=== PATIENT | female | born 1930 | race Hispanic/Latino ===

== ENCOUNTER 2018-09-27 18:06 | Inpatient (IN) | payer MEDICARE, OTHER ==
[~2018-09-27] VITALS: Ht 144.8 cm; Wt 69.9 kg
--- OUTSIDE RECORDS SUMMARY | 2018-09-27 18:09 | XMS REPORT ---
Author Author [facility] Address Unknown Phone Unavailable Care Team Providers Care Structures Mechanic Name Role Phone Unavailable Unavailable Payers Payer Name Policy Type Policy Number Effective Date Expiration Date Problems This patient has no known problems. Allergies, Adverse Reactions, Alerts Allergy Name Allergy Type Status Severity Reaction(s) Onset Date Inactive Date Treating Clinician Comments Sulfa (Sulfonamide Antibiotics) DA Active U 2016-10-18 00:00:00 sulfamethoxazole DA Active U 2016-10-18 00:00:00 trimethoprim DA Active U 2016-10-18 00:00:00 Medications This patient has no known medications.
--- NOTE | 2018-09-27 19:55 | Diagnostic Imaging Report ---
EXAM: XR CHEST 2 VIEWS DATE: 09/27/2018 12:00 AM INDICATION: chills COMPARISON: None FINDINGS: Lines and Tubes: None Heart and Mediastinum: Enlarged. Aortic vascular calcifications. Lungs and Pleura: Mild edema. Patchy basilar opacities. Bones and Soft Tissues: No acute findings. IMPRESSION: 1. Mild volume overload with basilar volume loss and/or pneumonia. Signed by: Dr. Parish John MD on 09/27/2018 7:52 PM
--- NOTE | 2018-09-27 21:23 | Diagnostic Imaging Report ---
ADDENDUM #1 Addendum: Indeterminate left adrenal nodule could be better evaluated with outpatient adrenal mass CT or MRI. Signed by: Dr. Parish John MD on 09/27/2018 9:24 PM ORIGINAL REPORT EXAM: CT Abdomen and Pelvis WITH contrast INDICATION: Pain COMPARISON: None. TECHNIQUE: Abdomen and Pelvis was scanned utilizing a multidetector helical scanner after administration of IV contrast. Coronal and sagittal reformations were obtained. IV CONTRAST: 100 mL Isovue-370 COMPLICATIONS: None RADIATION DOSE: Total DLP:732 mGy*cm Estimated effective dose: (DLP x 0.015 x size factor) mSv CTDIvol has been reviewed. It is below the limits set by the Radiation Protocol Committee (RPC). Appropriate CT dose reduction techniques were utilized. FINDINGS: Abdomen: Lung Bases: Basilar atelectasis. Solid Organs: Cholecystectomy clips with prominence of the intrahepatic and extrahepatic biliary system, statistically reservoir phenomenon. Cysts left hepatic lobe. Indeterminate nodule left adrenal gland. Solid organs otherwise unremarkable. Upper GI Tract: No small bowel obstructive changes. Vascularity: Mild aortic vascular calcifications with no aneurysm. Lymph Nodes: No suspicious adenopathy. Other: None. Pelvis: Bladder: Layering contrast. Other: Uterus/adnexa suboptimally evaluated with CT. 16 mm cyst left adnexa. Colon: Diffuse diverticulosis. Wall thickening sigmoid colon. Bones: Degenerative changes. IMPRESSION: 1. Extensive diverticulosis. Wall thickening sigmoid colon could represent sequela of chronic inflammation, with mild acute diverticulitis possible. Correlation with symptoms. 2. Uterus/adnexa suboptimally evaluated. Small cyst right adnexa. Follow-up nonemergent outpatient pelvic ultrasound recommended. 3. Prominence intrahepatic and extra hepatic below system statistically reservoir phenomenon. Clinical/laboratory correlation for biliary obstruction recommended. Signed by: Dr. Parish John MD on 09/27/2018 9:20 PM
[2018-09-27] MEDS ORDERED: ACETAMINOPHEN 325 MG TAB PO PRN (23:15)
[2018-09-27] MEDS ORDERED: LEVOFLOXACIN 500MG/D5W 100ML 100 ML IV ONE (23:15)
[2018-09-27] MEDS ORDERED: ONDANSETRON HCL INJ 2MG/ML 2ML 2 MG/ML VIAL IV PRN (23:15)
[2018-09-27] MEDS ORDERED: METRONIDAZOLE 500MG/NS 100ML 100 ML IV ONE (23:15)
[2018-09-27] MEDS ORDERED: ACETAMINOPHEN 325 MG TAB PO ONE (23:15)
[2018-09-27] MEDS ORDERED: ROPINIROLE HC0.25 MG PO (23:59)
[2018-09-27] MEDS ORDERED: LOSARTAN POTASS25 MG PO (23:59)
[2018-09-27] MEDS ORDERED: OMEPRAZOLE40 MG PO (23:59)
[2018-09-28] VITALS (9 sets, daily range): BP systolic 114–154; BP diastolic 56–67
--- NOTE | 2018-09-28 00:25 | NUR ---
received patient from [facility], [facility]. Swazi speaking. daughter and son at bedside. denies any pain at this time. vss. skin intact. no edema. pulses intact. left ac 20g sl. bed locked and in lowest position, call light within reach. family refused bed alarm. amb w/ standby assist. will continue to monitor the patient.
[2018-09-28] MEDS ORDERED: ASPIRIN81 MG PO (01:16)
[2018-09-28] MEDS ORDERED: SODIUM CHLORIDE 0.9% 250ML 250 ML ONE (02:01)
[2018-09-28] MEDS ORDERED: METRONIDAZOLE 500MG/NS 100ML 100 ML IV SCH (06:00)
[2018-09-28 06:44] LABS: BASOPHILS % 0.4 % (0.0-1.0); EOSINOPHILS % 0.1 % (0.0-6.0); HEMATOCRIT 32.7 % (34.2-44.1); HEMOGLOBIN 10.6 g/dL (12.0-16.0); LYMPHOCYTES # (AUTO) 0.8 (1.0-3.2); LYMPHOCYTES % 11.8 % (18.0-39.1); MEAN CORPUSCULAR HEMOGLOBIN 30.2 pg (28-32); MEAN CORPUSCULAR HGB CONC 32.4 g/dL (31-35); MEAN CORPUSCULAR VOLUME 93.2 fL (81-99); MONOCYTES # (AUTO) 0.6 (0.2-0.8); MONOCYTES % 8.6 % (4.4-11.3); NEUTROPHILS # (AUTO) 5.4 (2.1-6.9); NEUTROPHILS % 78.8 % (38.7-80.0); PLATELET COUNT 182 x10e3/uL (140-360); RED BLOOD COUNT 3.51 x10e6/uL (3.6-5.1); RED CELL DISTRIBUTION WIDTH 12.8 % (11.7-14.4)
[2018-09-28 07:06] LABS: ALANINE AMINOTRANSFERASE 105 IU/L (0-55); ALBUMIN 3.1 g/dL (3.5-5.0); ALKALINE PHOSPHATASE 74 IU/L (40-150); ANION GAP 13.1 mmol/L (8-16); BILIRUBIN,DIRECT 0.4 mg/dL (0.0-0.5); BLOOD UREA NITROGEN 15 mg/dL (7-26); BUN/CREATININE RATIO 19 (6-25); CALCIUM 8.8 mg/dL (8.4-10.2); CARBON DIOXIDE 25 mmol/L (22-29); CHLORIDE 100 mmol/L (98-107); EST GLOMERULAR FILTRATION RATE > 60 ML/MIN (60-); GLUCOSE 104 mg/dL (74-118); POTASSIUM 4.1 mmol/L (3.5-5.1); SODIUM 134 mmol/L (136-145)
--- NOTE | 2018-09-28 07:27 | NUR ---
Received patient. Patient laying down in bed at this time, no signs of distress. Bed in lowest position, wheels locked, side rails up x2, call light in reach. Family at bedside, will continue to monitor.
[2018-09-28] MEDS ORDERED: ZOLPIDEM TARTRATE 5 MG TAB PO PRN (10:00)
[2018-09-28] MEDS ORDERED: DOCUSATE SODIUM LIQD 100 MG/10 ML UDC NG SCH (10:30)
[2018-09-28] MEDS ORDERED: MAGNESIUM HYDROXIDE 30 ML UDC PO NR (10:30)
[2018-09-28] MEDS: ROPINIROLE HCL 0.25 MG TAB PO SCH (10:41)
[2018-09-28] MEDS: PANTOPRAZOLE SOD 40 MG TABEC PO SCH (10:41)
[2018-09-28] MEDS: LOSARTAN POTASSIUM 25 MG TAB PO SCH (10:41)
[2018-09-28] MEDS: METRONIDAZOLE 500MG/NS 100ML 100 ML IV SCH ×2 (10:41→18:17)
--- NOTE | 2018-09-28 11:10 | NUR ---
Patient A/O x3 even respirations unlabored on RA. Last BM Saturday, bowel sounds active. Skin intact, no edema. Left AC 20 gauge SL. Belarusian speaking with family at bedside. Patient is ambulatory with standby assist. Tylenol given for headache this AM. Pain subsided, no other complaints or discomforts at this time. Call light in reach, will continue to monitor.
[2018-09-28 11:16] LABS: BILIRUBIN,URINE NEGATIVE (NEGATIVE); CLARITY,URINE CLEAR (CLEAR); COLOR,URINE YELLOW (YELLOW); KETONES,URINE NEGATIVE (NEGATIVE); LEUKOCYTE ESTERASE ,URINE NEGATIVE (NEGATIVE); NITRITE,URINE NEGATIVE (NEGATIVE); PROTEIN,URINE DIPSTICK NEGATIVE (NEGATIVE); URINE UROBILINOGEN 0.2 mg/dL (0.2 - 1)
[2018-09-28 11:28] LABS: RBC,URINE 0-5 /HPF (0-5)
--- NOTE | 2018-09-28 12:26 | History and Physical ---
CHIEF COMPLAINT: Fever and chills. HISTORY OF PRESENT ILLNESS: The patient is an 88-year-old woman. She reports some fever and chills for about 2 days prior to admission. The day before yesterday, she had some abdominal pain, but it has not returned. She notes some cough. She also notes some difficulty hearing. When she came to the emergency department, she was found to have a fever of 101.5. Chest x-ray shows some infiltrates. CT scan of the abdomen showed some thickening of the colonic wall, possibly related to diverticulitis. PAST SURGICAL HISTORY: Status post cholecystectomy. PAST MEDICAL HISTORY 1. History of peptic ulcer disease, treated about 10 years ago. 2. History of hypertension. 3. History of acid reflux. ALLERGIES: PATIENT IS ALLERGIC TO PENICILLINS. SOCIAL HISTORY: The patient is not a drinker. She is not a smoker. 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 FAMILY HISTORY: The family history is noncontributory. REVIEW OF SYSTEMS: She did have some fevers and chills. She had no headache. She denied any throat swelling. She had no neck pain. She denied any chest pain. She has no coughing or wheezing. She denies any dyspnea. She had some transient abdominal pain about 2 days ago. She has no leg edema. PHYSICAL EXAMINATION VITAL SIGNS: The patient is afebrile. The vital signs are stable. HEENT: Shows no facial swelling or erythema. The oropharynx is normal. LYMPHATIC: Shows no submandibular, cervical, or supraclavicular adenopathy. CARDIAC: Reveals a regular rate and rhythm with a normal S1 and S2. There are no murmurs or rubs. LUNGS: Auscultation of the lungs reveals clear breath sounds bilaterally. There is no wheezing. ABDOMEN: Soft, nontender. There is no rebound or guarding. EXTREMITIES: Shows no leg edema or calf tenderness. There is no cyanosis or clubbing. SKIN: Shows no rashes. NEUROLOGICAL: Shows no focal abnormality. RADIOGRAPHIC DATA: CT scan of the abdomen and pelvis shows diverticulosis and possible thickening of the colonic wall. Chest x-ray shows some possible basal atelectasis. LABORATORY DATA: Sodium is 134 and the BUN and creatinine is normal. The AST is 95 and the ALT is 105. The white blood cell count is 6.8 and the hemoglobin is 10.6. The platelet count is 182. IMPRESSION 1. Community-acquired pneumonia. 2. Diverticulosis. 3. Anemia, unspecified. 4. History of peptic ulcer disease. 5. History of hypertension. PLAN 1. Patient will receive antibiotics for community-acquired pneumonia and diverticulitis. 2. Await culture results. 3. Echocardiogram. 4. Monitor blood counts and liver profile. Job#: [id number] LPA
--- NOTE | 2018-09-28 19:27 | NUR ---
Report received and walking rounds complete. Pt resting in bed and in no apparent distress. Pt family at bedside. Family member to stay overnight. Pt czech speaking only. All safety measures ensured, bed alarm on and pt call perez near. Pt encouraged to use call perez for assistance.
[2018-09-28] MEDS ORDERED: LEVOFLOXACIN 500MG/D5W 100ML 100 ML IV SCH (23:15)
[2018-09-29] VITALS (8 sets, daily range): BP systolic 124–157; BP diastolic 60–79
[2018-09-29] MEDS: LEVOFLOXACIN 500MG/D5W 100ML 100 ML IV SCH (02:07)
[2018-09-29] MEDS: METRONIDAZOLE 500MG/NS 100ML 100 ML IV SCH ×3 (03:31→19:44)
[2018-09-29 05:40] LABS: BASOPHILS % 0.6 % (0.0-1.0); EOSINOPHILS # (AUTO) 0.1 (0.0-0.4); EOSINOPHILS % 1.1 % (0.0-6.0); HEMATOCRIT 33.1 % (34.2-44.1); HEMOGLOBIN 11.1 g/dL (12.0-16.0); LYMPHOCYTES % 20.2 % (18.0-39.1); MEAN CORPUSCULAR HEMOGLOBIN 31.1 pg (28-32); MEAN CORPUSCULAR HGB CONC 33.5 g/dL (31-35); MEAN CORPUSCULAR VOLUME 92.7 fL (81-99); MONOCYTES # (AUTO) 0.7 (0.2-0.8); MONOCYTES % 15.3 % (4.4-11.3); NEUTROPHILS % 62.6 % (38.7-80.0); PLATELET COUNT 172 x10e3/uL (140-360); RED BLOOD COUNT 3.57 x10e6/uL (3.6-5.1); RED CELL DISTRIBUTION WIDTH 13.1 % (11.7-14.4)
[2018-09-29 06:10] LABS: ALANINE AMINOTRANSFERASE 65 IU/L (0-55); ALBUMIN 3.1 g/dL (3.5-5.0); ALKALINE PHOSPHATASE 63 IU/L (40-150); ANION GAP 13.3 mmol/L (8-16); BLOOD UREA NITROGEN 11 mg/dL (7-26); BUN/CREATININE RATIO 14 (6-25); CALCIUM 8.9 mg/dL (8.4-10.2); CARBON DIOXIDE 24 mmol/L (22-29); CHLORIDE 106 mmol/L (98-107); CREATININE, SERUM 0.79 mg/dL (0.57-1.11); EST GLOMERULAR FILTRATION RATE > 60 ML/MIN (60-); GLUCOSE 95 mg/dL (74-118); POTASSIUM 4.3 mmol/L (3.5-5.1); SODIUM 139 mmol/L (136-145)
--- NOTE | 2018-09-29 07:28 | NUR ---
report given to day shift nurse and walking round complete.
[2018-09-29] MEDS ORDERED: MAGNESIUM HYDROXIDE 30 ML UDC PO ONE (08:30)
[2018-09-29] MEDS: PANTOPRAZOLE SOD 40 MG TABEC PO SCH (08:53)
[2018-09-29] MEDS: ROPINIROLE HCL 0.25 MG TAB PO SCH (08:54)
[2018-09-29] MEDS: LOSARTAN POTASSIUM 25 MG TAB PO SCH (08:54)
[2018-09-29] MEDS ORDERED: ASPIRIN 81 MG CHEW TAB PO SCH (09:00)
[2018-09-29] MEDS ORDERED: ROPINIROLE HCL 0.25 MG TAB PO SCH (09:00)
--- NOTE | 2018-09-29 09:41 | Diagnostic Imaging Report ---
EXAMINATION: CHEST 2 VIEWS INDICATION: Pneumonia. COMPARISON: Chest radiograph 09/27/[address] Abdomen/Pelvis 09/27/2018. FINDINGS: Limited lateral radiograph secondary to motion. TUBES and LINES: None. LUNGS: Mild patchy bibasilar opacities, likely atelectasis. There is no evidence of lobar pneumonia or pulmonary edema. PLEURA: No pleural effusion or pneumothorax. HEART AND MEDIASTINUM: The cardiomediastinal silhouette is unchanged and enlarged. Atherosclerotic calcifications of the aortic arch. BONES AND SOFT TISSUES: No acute osseous abnormality. Rotator cuff anchors are visualized in the right proximal humerus. UPPER ABDOMEN: No free air under the diaphragm. IMPRESSION: Mild patchy bibasilar opacities, likely atelectasis. No evidence of lobar pneumonia. Signed by: Dr. Anthony Conrad MD on 09/29/2018 9:38 AM
--- NOTE | 2018-09-29 14:28 | Diagnostic Imaging Report ---
PROCEDURE: X-RAY MODIFIED BARIUM SWALLOW COMPARISON: None. INDICATION: Cough. Radiation Details: Fluoroscopy time: 0.8 minutes Cumulative dose: 1.7 mGy DISCUSSION: Fluoroscopic examination was performed in conjunction with speech pathology during swallowing a variety of thin and thick liquid consistencies. Provided images demonstrate no evidence of penetration or aspiration. Trace vallecular residue is noted. CONCLUSION: Modified barium swallow demonstrating no evidence of penetration or aspiration. Please refer to the speech pathology report for further details. Signed by: Dr. Anthony Conrad MD on 09/29/2018 2:25 PM
--- NOTE | 2018-09-29 14:52 | NUR ---
CASE MANAGEMENT INITIAL ASSESSMENT Customer Service Supervisor to bedside to discuss plan of care with patient/family. CM/SW role and care transitions discussed. Anticipated discharge plan discussed along with duration of care. CM/SW discussed patients right to make decisions in care. CM/SW work hours given. Spoke with pt's daughter Yarelis Bocanegra Patient lives: with son Errol Bocanegra and daughter in law, but has been staying with her daughter Yarelis Bocanegra Admit/Transfer: thru ED Hospital/ER visits since last admit: last hospitalization 3 years ago POA/Emergency contact: Errol Bocanegra [phone] Current/Previous Home Health: previously had home health, does not remember the name. PCP/Follow-up Care: Dr. Liriano Current/Previous DME: walker Medications (referring to index hospitalization or the first time you were in the hospital) a. Were changes made in your medications when you were in the hospital on [date of index hospitalization]? n/a b. Did you understand the changes? n/a c. Were you able to obtain your new medications right away? n/a d. Were you able to take your medications like the doctor wanted you to? n/a e. Did the hospital give you an accurate, easy to understand list of medications when you left? n/a Scale of 1-10 how comfortable does patient feel with disease management in outpatient settin Other Services: none Employment Status: retired Areas of Concerns: pneumonia, diverticulitis Referral Needs: none Education Needs: medical management IMM/FUENTES given and signed (if applicable): IMM explained to pt and her daughter. Portuguese copy provided. Signed copy in chart. Copy to pt. Goal for discharge: Home CM/SW left business card at the bedside with contact information. Name and number was also written on the patients whiteboard. Patient verbalized understanding of discussion. CM will follow-up with ongoing discharge and transition of care needs.
[2018-09-30] MEDS: LEVOFLOXACIN 500MG/D5W 100ML 100 ML IV SCH (02:01)
[2018-09-30] MEDS: METRONIDAZOLE 500MG/NS 100ML 100 ML IV SCH (03:35)
[2018-09-30 04:00] VITALS: BP 132/60
[2018-09-30 06:22] LABS: BASOPHILS % 0.7 % (0.0-1.0); EOSINOPHILS # (AUTO) 0.1 (0.0-0.4); EOSINOPHILS % 1.9 % (0.0-6.0); HEMATOCRIT 32.6 % (34.2-44.1); HEMOGLOBIN 10.6 g/dL (12.0-16.0); LYMPHOCYTES # (AUTO) 1.4 (1.0-3.2); LYMPHOCYTES % 26.3 % (18.0-39.1); MEAN CORPUSCULAR HEMOGLOBIN 30.8 pg (28-32); MEAN CORPUSCULAR HGB CONC 32.5 g/dL (31-35); MEAN CORPUSCULAR VOLUME 94.8 fL (81-99); MONOCYTES # (AUTO) 0.8 (0.2-0.8); MONOCYTES % 15.6 % (4.4-11.3); NEUTROPHILS % 55.3 % (38.7-80.0); PLATELET COUNT 179 x10e3/uL (140-360); RED BLOOD COUNT 3.44 x10e6/uL (3.6-5.1); RED CELL DISTRIBUTION WIDTH 12.9 % (11.7-14.4)
[2018-09-30 06:27] VITALS: BP 157/64
[2018-09-30 06:50] LABS: ANION GAP 13.3 mmol/L (8-16); CALCIUM 8.8 mg/dL (8.4-10.2); POTASSIUM 4.3 mmol/L (3.5-5.1)
[2018-09-30 08:21] VITALS: BP 154/67
--- NOTE | 2018-09-30 08:42 | NUR ---
PT ALERT RESP EVEN AND UNLABORED PT ABLE TO MAKE NEEDS KNOWN, NO C/O PAIN WHEN ASKED, CALL LIGHT IN REACH
--- NOTE | 2018-09-30 08:49 | Discharge Summary ---
DISCHARGE MEDICATIONS 1. Aspirin 81 mg p.o. daily. 2. Losartan 25 mg p.o. daily. 3. Omeprazole 40 mg p.o. daily. 4. Requip 0.5 mg p.o. at bedtime. 5. Levaquin 500 mg p.o. daily for 7 days. DISCHARGE DIAGNOSES 1. Community-acquired pneumonia, present on admission. 2. Diverticulitis. 3. Diverticulosis. 4. Anemia, unspecified. 5. History of peptic ulcer disease. 6. History of hypertension. RADIOGRAPHIC STUDIES 1. Modified barium swallow showed no evidence of aspiration. 2. CT scan of the abdomen and pelvis showed diffuse diverticulosis with some thickening of the sigmoid wall suggestive of chronic inflammation and mild diverticulitis. 3. Chest x-ray shows patchy bibasilar atelectasis versus opacities. HISTORY OF PRESENT ILLNESS: Patient is an 88-year-old woman. She has a history of fever and chills for 2 days prior to admission. She also notes some cough for about a week. Her cough is nonproductive. She had some abdominal pain, as well as some difficulty moving her bowels. HOSPITAL COURSE: The patient came to the emergency department. Her x-ray showed possible bibasilar infiltrates. Her influenza swab was negative. She was started on antibiotics. She had a swallowing evaluation that was negative. She also had an echocardiogram that showed good function of the heart with only some mild calcification of the valves. She improved with the treatment from the antibiotics, and was eager to go home at the time of discharge. Patient also had a CT scan that showed diverticulosis and possible diverticulitis. She did not complain of nausea or vomiting. She did note some constipation and required some Milk of Magnesia. She was able to tolerate p.o. feeding without difficulty. She had no abdominal pain postprandially. She had no nausea or vomiting. DISPOSITION: The patient will be discharged home. She will follow up with Dr. Ezra Omer in 1-2 weeks. LASHANDA RAMIREZ MD Job#: [id number] [place] cc:EZRA OMER MD
--- NOTE | 2018-09-30 14:00 | NUR ---
pt discharge home with prescription ,pt and family member were educated on medication, and follow ups, iv site removed no swelling no redness to site.
== END 2018-09-30 10:13 | disposition home or self-care (01) | DRG 391 ==
LOC: FSED 18:06 → ERHOLD 23:39 → MED/SURG 09-28 00:25
PROVIDERS: ADMIT Internal Medicine Critical Care Medicine; ATTEND Internal Medicine Critical Care Medicine
DX: K57.32 Diverticulitis of large intestine without perforation or abscess without bleeding (principal); J18.9 Pneumonia, unspecified organism; I10 Essential (primary) hypertension; D64.9 Anemia, unspecified; K27.9 Peptic ulcer, site unspecified, unspecified as acute or chronic, without hemorrhage or perforation; Z88.0 Allergy status to penicillin; Z88.2 Allergy status to sulfonamides; K59.00 Constipation, unspecified
CPT/HCPCS: 36415; 71046; 74177; 74230; 80048; 80053; 80076; 81001; 85025; 93005; 93306; 99284; J1956; J7050

== ENCOUNTER 2018-11-03 22:51 | Emergency (ER) | payer MEDICARE, OTHER ==
[~2018-11-03] VITALS: Ht 144.8 cm; Wt 69.9 kg
[~2018-11-03 22:51] MED LIST: ASPIRIN81 MG PO; LOSARTAN POTASS25 MG PO; OMEPRAZOLE40 MG PO; ROPINIROLE HC0.25 MG PO
[2018-11-03] MEDS ORDERED: ACETAMINOPHEN 325 MG TAB PO ONE (23:15)
[2018-11-03] MEDS ORDERED: CLONIDINE HCL 0.2 MG TAB PO ONE (23:15)
--- NOTE | 2018-11-03 23:42 | Diagnostic Imaging Report ---
Examination: Single AP view of the chest. COMPARISON: Chest 2 views 09/29/2018 INDICATION: Chest pain, headaches, increased blood pressure IMPRESSION: 1. Lines and Tubes: None 2. Lungs are well-inflated. Mild atelectatic changes in the left base. No consolidation or pulmonary edema. 3. Cardiomediastinal silhouette is normal. Pulmonary vasculature is normal. Atherosclerotic calcification of the aortic arch. Stable mild left leftward upper tracheal deviation, which may be secondary to enlarged thyroid or tortuous vessels. Recommend contrast enhanced chest CT on a nonemergent basis, if clinically indicated. 4. No acute bony abnormalities. Stable anchor screws in the right humeral head. Signed by: Dr. Thom Wan M.D. on 11/03/2018 11:39 PM
== END 2018-11-04 00:18 | disposition home or self-care (01) ==
LOC: FSED 22:51
DX: R07.89 Other chest pain (principal); I10 Essential (primary) hypertension; Z87.01 Personal history of pneumonia (recurrent)
CPT/HCPCS: 71045; 80053; 81003; 82553; 83880; 84484; 85025; 93005; 99284

== ENCOUNTER 2018-11-24 10:09 | Emergency (ER) | payer OTHER, MEDICARE ==
[~2018-11-24] VITALS: Ht 144.8 cm; Wt 69.9 kg
[2018-11-24] MEDS ORDERED: AMLODIPINE BESYL5 MG PO (10:41)
[2018-11-24] MEDS ORDERED: LOSARTAN POTASS50 MG (10:41)
[2018-11-24] MEDS ORDERED: DIAZEPAM5 MG PO (10:41)
[2018-11-24] MEDS ORDERED: NEOMYCIN-POLYMY10 ML (10:41)
[2018-11-24] MEDS ORDERED: ULTRAM50 MG PO (10:41)
[2018-11-24 11:15] VITALS: BP 160/60
== END 2018-11-24 11:25 | disposition home or self-care (01) ==
LOC: FSED 10:09
DX: H92.02 Otalgia, left ear (principal); H93.12 Tinnitus, left ear
CPT/HCPCS: 99282

== ENCOUNTER 2019-06-06 10:50 | Emergency (ER) | payer MEDICARE, OTHER ==
[~2019-06-06] VITALS: Ht 152.4 cm; Wt 68.0 kg
[~2019-06-06 10:50] MED LIST changes: +AMLODIPINE BESYL5 MG PO; +DIAZEPAM5 MG PO; +LOSARTAN POTASS50 MG; +NEOMYCIN-POLYMY10 ML; +ULTRAM50 MG PO
[2019-06-06] MEDS ORDERED: MAGNESIUM/ALUMINUM/SIMETHICONE 30 ML UDC PO STA (11:17)
--- NOTE | 2019-06-06 11:28 | NUR ---
urine cx done
[2019-06-06] MEDS ORDERED: OLMESARTAN-HCT1 EACH (11:52)
[2019-06-06 11:55] VITALS: BP 156/60
== END 2019-06-06 12:05 | disposition home or self-care (01) ==
LOC: FSED 10:50
DX: N30.90 Cystitis, unspecified without hematuria (principal); K21.9 Gastro-esophageal reflux disease without esophagitis; Z88.0 Allergy status to penicillin; Z88.2 Allergy status to sulfonamides; I10 Essential (primary) hypertension; F41.9 Anxiety disorder, unspecified
CPT/HCPCS: 80048; 81003; 85025; 87086; 99283

== ENCOUNTER → 2019-07-20 | Outpatient (CLI) | payer MEDICARE, OTHER ==
[~2019-07-20] MED LIST changes: +IOPAMIDOL 370 MG/ML 200 ML INFUS..BTL INJ ONE; +OLMESARTAN-HCT1 EACH; +SODIUM CHLORIDE 0.9% 50ML 50 ML ONE
--- NOTE | 2019-07-20 18:26 | Diagnostic Imaging Report ---
CT of the abdomen and pelvis History: Abdominal pain radiating to the back Comparison: 09/27/2018. Technique: Multidetector CT scanning of the abdomen and pelvis was performed from the level of the lung bases to the inferior pubic ramus, with IV contrast. DOSE REDUCTION: The examination was performed according to departmental dose-optimization program which includes automated exposure control, adjustment of the mA and/or kV according to patient size and/or use of iterative reconstruction technique. Discussion: The lung bases demonstrate minimal dependent atelectasis. The liver demonstrates stable cyst in the left hepatic lobe. No suspicious hepatic lesions are identified. Patient is status post cholecystectomy. There is mild prominence of the intrahepatic ducts and common bile duct which is likely secondary to the reservoir effect of the postcholecystectomy state. The spleen is within normal limits. The right adrenal gland is within normal limits. The left adrenal gland contains a 9 mm adrenal nodule which measures 97 Hounsfield units on this portal venous phase CT. The kidneys are normal in size. No hydroureteronephrosis is present. No renal mass lesions are identified. There are no kidney stones. The stomach, small, and large bowel are nondistended. Colonic diverticulosis of the descending and sigmoid colon is present. No evidence of acute diverticulitis. There is no free intraperitoneal air or ascites. The uterus is present. The abdominal aorta is of normal course and caliber. The urinary bladder is within normal limits. No acute osseous abnormalities are identified. Multilevel degenerative changes of the thoracolumbar spine are present. IMPRESSION: 1. Colonic diverticulosis without evidence of acute diverticulitis. 2. Mild prominence of the common bile duct and intrahepatic ducts is likely secondary to the postcholecystectomy state. 3. 9 mm incompletely left adrenal nodule measuring less than 130 Hounsfield units on this portal venous phase CT. This is probably benign. No follow-up imaging is recommended. 4. Unchanged hepatic cysts. Signed by: Hugh Russ MD on 07/20/2019 6:23 PM
== END ==
LOC: CT 16:02
PROVIDERS: ATTEND Internal Medicine
DX: R10.9 Unspecified abdominal pain (principal)
CPT/HCPCS: 74177; Q9967

== ENCOUNTER 2020-06-13 13:32 | Emergency (ER) | payer MEDICARE, OTHER ==
[~2020-06-13] VITALS: Ht 175.3 cm; Wt 68.0 kg
[~2020-06-13 13:32] MED LIST changes: -IOPAMIDOL 370 MG/ML 200 ML INFUS..BTL INJ ONE; -SODIUM CHLORIDE 0.9% 50ML 50 ML ONE
--- NOTE | 2020-06-13 14:44 | NUR ---
visual exam by md with visual associate and fm present.
--- NOTE | 2020-06-13 16:41 | Emergency Department Note ---
History of Present Illnes History of Present Illness Chief Complaint: Genitourinary History of Present Illness This is a 89 year old female with dysuria since yesterday PM. No fev er/chills. No hematuria. No vag D/.C. Reports area of skin around urethria is "irritated". No N/V. No abd pain. Pain only with urination. Historian: Patient Arrival Mode: Car Network Security Consultant Required: No Onset (how long ago): day(s) (1) Location: urethra Quality: burining Radiation: Reports non-radiation Severity: mild Onset quality: gradual Duration (how long): day(s) (1) Progression: unable to specify Chronicity: new Past Medical/Family History Physician Review I have reviewed the patient's past medical and family history. Any updates have been documented here. Past Medical History Past Medical History: Hypertension Other Medical History: hx of gastric ulcers Past Surgical History: Cholecysctectomy, Appendectomy Other Surgery: varicose vein surgery Other Last Tetanus: UNK Review of Systems Review of Systems Constitutional: Denies chills, Denies fever EENTM: Denies ear pain Cardiovascular: Denies chest pain, Denies edema Respiratory: Denies cough, Denies dyspnea Gastrointestinal: Denies diarrhea, Denies nausea, Denies vomiting Genitourinary: Reports as per HPI Musculoskeletal: Denies joint pain Integumentary: Denies rash Neurological: Denies headache Hematological/Lymphatic: Denies swollen glands Physical Exam Related Data Allergies: Coded Allergies: Penicillins (Verified Allergy, Unknown, 09/27/18) Sulfa (Sulfonamide Antibiotics) (Verified Allergy, Unknown, 09/27/18) amoxicillin (Verified Allergy, Unknown, 06/06/19) Vital signs reviewed: No Physical Exam CONSTITUTIONAL Constitutional: Present well-developed, Present well-nourished HENT HENT: Present normocephalic, Present atraumatic, Present oropharynx clear/moist, Present nose normal HENT L/R: Present left ext ear normal, Present right ext ear normal EYES Eyes: Reports PERRL, Reports conjunctivae normal NECK Neck: Present ROM normal PULMONARY Pulmonary: Present effort normal, Present breath sounds normal CARDIOVASCULAR Cardiovascular: Present regular rhythm, Present heart sounds normal, Present capillary refill normal, Present normal rate GASTROINTESTINAL Abdominal: Present soft, Present nontender, Present bowel sounds normal GENITOURINARY Genitourinary: Present other (Excoriation of skin around uretheral opening. Small non-thrombosed external hemorrhoid) SKIN Skin: Present warm, Present dry, Present other (Excoriation of skin around uretheral opening); Absent bruising MUSCULOSKELETAL Musculoskeletal: Absent edema NEUROLOGICAL Neurological: Present alert PSYCHOLOGICAL Psychological: Present mood/affect normal, Present judgement normal Results Laboratory Lab results reviewed: Yes Laboratory comments UA Negative Assessment & Plan Medical Decision Making MDM Patient with dysuria only with urination. UA negative. Hx pain only with urination. UA neg. Excoriation of periurethral skin. Gave strict return precautions and patient to have prompt follow-up. Assessment & Plan Final Impression: (1) Hypertension (2) Excoriation of groin (3) Acute hemorrhoid Depart Disposition: HOME, SELF-custodial Meds Reported Medications Olmesartan/Hydrochlorothiazide (Olmesartan-Hctz 20-12.5 mg Tab) 1 Each Tablet, DAILY 06/06/19 Aspirin (ASPIRIN) 81 Mg Tab.chew, 1 TAB PO DAILY 09/28/18 Ropinirole Hcl (ROPINIROLE HCL) 0.25 Mg Tablet, 0.5 MG PO DAILY, #90 TAB 09/27/18 INA SCHREIBER MD Jun 13, 2020 13:41
== END 2020-06-13 15:45 | disposition home or self-care (01) ==
LOC: FSED 14:00
DX: R30.0 Dysuria (principal); S30.811A Abrasion of abdominal wall, initial encounter; K64.4 Residual hemorrhoidal skin tags; I10 Essential (primary) hypertension; Z87.19 Personal history of other diseases of the digestive system
CPT/HCPCS: 81003; 99283

== ENCOUNTER 2020-06-15 13:49 | Emergency (ER) | payer MEDICARE, OTHER ==
[2020-06-15] MEDS ORDERED: KETOROLAC TROMETHAMINE 30 MG/ML VIAL IM STA (14:38)
[2020-06-15] MEDS ORDERED: HYDROCODONE/APAP 5MG-325MG TAB PO ONE (14:45)
--- NOTE | 2020-06-15 16:44 | Diagnostic Imaging Report ---
CT of the pelvis, without contrast. History: Back pain. Comparison: CT abdomen/pelvis with contrast from 07/20/2019. Technique: Multidetector CT scanning of the pelvis was performed without the use of contrast material. Coronal and sagittal multiplanar reformations were obtained. RADIATION DOSE: Total DLP: 1041.00 mGy*cm Dose modulation, iterative reconstruction, and/or weight based adjustment of the mA/kV was utilized to reduce the radiation dose to as low as reasonably achievable. FINDINGS: Please refer to separate CT lumbar spine dictation for evaluation of the spine. The osseous structures within the pelvis demonstrate no evidence for acute fracture or dislocation. No focal lytic or blastic abnormalities identified. There are mild/moderate degenerative changes of the bilateral hips. Symmetric sclerotic changes noted of the bilateral SI joints. Moderate degenerative changes noted at the pubic symphysis with subchondral sclerosis and cystic change. Diverticula are noted within the distal colon without evidence for acute diverticulitis. Remaining visualized loops of small and large bowel within the pelvis demonstrate no significant abnormalities. The uterus and adnexa are grossly unremarkable. There is no ascites or intraperitoneal free air visualized within the pelvis. The distal abdominal aorta is normal in caliber with atherosclerotic calcifications within its course and branch vessels. The extraperitoneal tissues are unremarkable. IMPRESSION: No acute abnormality identified within the pelvis. Degenerative changes as above. Colonic diverticulosis without evidence for acute reticulitis. Signed by: Dr. Moi Kwon MD on 06/15/2020 4:41 PM
--- NOTE | 2020-06-15 18:22 | Diagnostic Imaging Report ---
Examination: CT LUMBAR SPINE WO CONTRAST History: ^N ^SCIATIC PAIN ^[id number] ^[id number] Comparison studies: None Technique: Axial images were obtained through the lumbar spine from T11. Coronal and sagittal reconstructions obtained from the axial data. Dose modulation, iterative reconstruction, and/or weight based adjustment of the mA/kV was utilized to reduce the radiation dose to as low as reasonably achievable. Intravenous contrast: None Findings: The usual 5 non-rib bearing lumbar vertebral bodies are present. Alignment: Normal lordosis. No scoliosis. Soft tissues: Atherosclerotic calcification of the abdominal aorta and its branches. Paraspinal muscles: No abnormalities. Sacroiliac joints: Sclerosis due to degenerative changes. Vertebrae: No fractures, infection or neoplasm. Degenerative changes: Vacuum phenomenon is identified in the intervertebral disc space from T10 through L1. L1-L2: Diffuse disc bulge. No foraminal or canal stenosis L2-L3: Diffuse disc bulge results in moderate bilateral neural foraminal narrowing. No canal stenosis L3-L4: Diffuse disc bulge and bilateral facet arthropathy results in severe bilateral neural foraminal narrowing and severe canal stenosis. L4-L5: Asymmetric to the left osteophyte complex, ligamentum flavum thickening and bilateral facet arthropathy results in mild right and moderate left neural foraminal narrowing and mild canal stenosis. L5-S1: Diffuse disc bulge and bilateral facet arthropathy results in severe right and moderate left neural foraminal narrowing. No canal stenosis. IMPRESSION: No acute fracture. 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 Moderate left neural foraminal narrowing and mild canal stenosis at L4-L5. Severe right and moderate left foraminal narrowing at L5-S1. Signed by: Dr. Argelia Trent M.D. on 06/15/2020 6:18 PM
[2020-06-15] MEDS ORDERED: LIDOCAINE 4% PATCH TP ONE (19:00)
--- NOTE | 2020-06-15 19:00 | Emergency Department Note ---
History of Present Illnes History of Present Illness Chief Complaint: Back Pain History of Present Illness This is a 89 year old female PATIENT WAS AT HOME AFTER SEEING HER DOCTOR AND WAS SITTING IN A CHAIR AND FELT A SHARP PAIN IN THE BACK OF HER RIGHT THIGH. SHE DOES NOT REPORT THAT THE PAIN RADIATES ANYWHERE. Historian: Patient, Physician General Practice/EMS, Medical Record Butter Melter Required: No Onset (how long ago): hour(s) Location: RIGHT LOEWR BACK/SI JOINT AREA Quality: PAIN Radiation: Reports non-radiation Severity: severe Onset quality: sudden Timing of current episode: constant Chronicity: new Context: Denies recent illness, Denies trauma/injury Relieving factors: none Exacerbating factors: none Associated symptoms: Reports denies other symptoms Past Medical/Family History Physician Review I have reviewed the patient's past medical and family history. Any updates have been documented here. Past Medical History Recent Fever: No Clinical Suspicion of Infectio: No New/Unexplained Change in Ment: No Past Medical History: Hypertension Other Medical History: hx of gastric ulcers Past Surgical History: Cholecysctectomy, Appendectomy Other Surgery: varicose vein surgery Social History Smoking Cessation: Never Smoker Counseling Performed: No Alcohol Use: None Any Illegal Drug Use: No TB Exposure/Symptoms: No Physically hurt or threatened: No Family History Family history of heart diseas: No Other Last Tetanus: UNK Any Pre-Existing Lines (PICC,: No Review of Systems Review of Systems Constitutional: Reports no symptoms EENTM: Reports no symptoms Cardiovascular: Reports no symptoms Respiratory: Reports no symptoms Gastrointestinal: Reports no symptoms Genitourinary: Reports no symptoms Musculoskeletal: Reports as per HPI, Reports back pain Integumentary: Reports no symptoms Neurological: Reports no symptoms Psychological: Reports no symptoms Endocrine: Reports no symptoms Hematological/Lymphatic: Reports no symptoms Physical Exam Related Data Allergies: Coded Allergies: Penicillins (Verified Allergy, Unknown, 09/27/18) Sulfa (Sulfonamide Antibiotics) (Verified Allergy, Unknown, 09/27/18) amoxicillin (Verified Allergy, Unknown, 06/06/19) Triage Vital Signs Vital Signs Date Time Temp Pulse Resp B/P (MAP) Pulse Ox O2 Delivery O2 Flow Rate FiO2 06/15/20 14:18 98.0 81 17 166/57 100 Room Air Vital signs reviewed: Yes Physical Exam CONSTITUTIONAL Constitutional: Present well-developed, Present well-nourished HENT HENT: Present normocephalic, Present atraumatic, Present oropharynx clear/moist, Present nose normal HENT L/R: Present left ext ear normal, Present right ext ear normal EYES Eyes: Reports PERRL, Reports conjunctivae normal NECK Neck: Present ROM normal PULMONARY Pulmonary: Present effort normal, Present breath sounds normal CARDIOVASCULAR Cardiovascular: Present regular rhythm, Present heart sounds normal, Present capillary refill normal, Present normal rate GASTROINTESTINAL Abdominal: Present soft, Present nontender, Present bowel sounds normal GENITOURINARY Genitourinary: Present exam deferred SKIN Skin: Present warm, Present dry MUSCULOSKELETAL Musculoskeletal: Present ROM normal, Present other (NEG SLR, NO MOTOR/SENS DEFICITS, NL DTR'S) NEUROLOGICAL Neurological: Present alert, Present oriented x 3, Present DTRs normal, Present no gross motor or sensory deficits; Absent cranial nerve deficit, Absent sensory deficit, Absent weakness PSYCHOLOGICAL Psychological: Present mood/affect normal, Present judgement normal Results Imaging Imaging results reviewed: Yes Impressions Examination: CT LUMBAR SPINE WO CONTRAST History: ^N ^SCIATIC PAIN ^[id number] ^[id number] Comparison studies: None Technique: Axial images were obtained through the lumbar spine from T11. Coronal and sagittal reconstructions obtained from the axial data. Dose modulation, iterative reconstruction, and/or weight based adjustment of the mA/kV was utilized to reduce the radiation dose to as low as reasonably achievable. Intravenous contrast: None Findings: The usual 5 non-rib bearing lumbar vertebral bodies are present. Alignment: Normal lordosis. No scoliosis. Soft tissues: Atherosclerotic calcification of the abdominal aorta and its branches. Paraspinal muscles: No abnormalities. Sacroiliac joints: Sclerosis due to degenerative changes. Vertebrae: No fractures, infection or neoplasm. Degenerative changes: Vacuum phenomenon is identified in the intervertebral disc space from T10 through L1. L1-L2: Diffuse disc bulge. No foraminal or canal stenosis L2-L3: Diffuse disc bulge results in moderate bilateral neural foraminal narrowing. No canal stenosis L3-L4: Diffuse disc bulge and bilateral facet arthropathy results in severe bilateral neural foraminal narrowing and severe canal stenosis. L4-L5: Asymmetric to the left osteophyte complex, ligamentum flavum thickening and bilateral facet arthropathy results in mild right and moderate left neural foraminal narrowing and mild canal stenosis. L5-S1: Diffuse disc bulge and bilateral facet arthropathy results in severe right and moderate left neural foraminal narrowing. No canal stenosis. IMPRESSION: No acute fracture. 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 Moderate left neural foraminal narrowing and mild canal stenosis at L4-L5. Severe right and moderate left foraminal narrowing at L5-S1. Signed by: Dr. Argelia Trent M.D. on 06/15/2020 6:18 PM Assessment & Plan Medical Decision Making MDM SCIATICA PAIN - CHECK L-SPINE AND PELVIS CT, PAIN CONTROL Reassessment Reassessment PT IMPROVED - DC HOME, F/U PCP [facility], DR ORANTES, MEDROL DOSE OMEGA, LIDODERM PATCHES, TYL #3 Assessment & Plan Final Impression: (1) Sciatica Depart Disposition: HOME, SELF-CARE Last Vital Signs Date Time Temp Pulse Resp B/P (MAP) Pulse Ox O2 Delivery O2 Flow Rate FiO2 06/15/20 14:24 98.0 90 17 166/57 100 Room Air Home Meds Reported Medications Olmesartan/Hydrochlorothiazide (Olmesartan-Hctz 20-12.5 mg Tab) 1 Each Tablet, DAILY 06/06/19 Aspirin (ASPIRIN) 81 Mg Tab.chew, 1 TAB PO DAILY 09/28/18 Ropinirole Hcl (ROPINIROLE HCL) 0.25 Mg Tablet, 0.5 MG PO DAILY, #90 TAB 09/27/18 Medications in the ED Ketorolac Tromethamine 30 mg ONCE STAT IM Last administered on 06/15/20at 15:13; Admin Dose 30 MG; Start 06/15/20 at 14:38; Stop 06/15/20 at 14:46; Status DC Acetaminophen/ Hydrocodone Bitart 1 ea ONCE ONCE PO Last administered on 06/15/20at 15:13; Admin Dose 1 EA; Start 06/15/20 at 14:45; Stop 06/15/20 at 14:46; Status DC DANIELLE SALCEDO MD Jun 15, 2020 19:00
== END 2020-06-15 19:50 | disposition home or self-care (01) ==
LOC: ER 14:51
DX: M54.41 Lumbago with sciatica, right side (principal); I10 Essential (primary) hypertension; Z87.19 Personal history of other diseases of the digestive system
CPT/HCPCS: 72131; 72192; 99283; J1885

== ENCOUNTER 2020-06-27 11:46 | Inpatient (IN) | payer MEDICARE, OTHER ==
[~2020-06-27] VITALS: Ht 152.4 cm; Wt 66.4 kg
[2020-06-27 12:39] LABS: BASOPHILS # (AUTO) 0.1 (0.0-0.1); BASOPHILS % 0.5 % (0.0-1.0); EOSINOPHILS % 0.3 % (0.0-6.0); HEMATOCRIT 36.2 % (34.2-44.1); HEMOGLOBIN 11.9 g/dL (12.0-16.0); LYMPHOCYTES # (AUTO) 1.6 (1.0-3.2); LYMPHOCYTES % 14.8 % (18.0-39.1); MEAN CORPUSCULAR HEMOGLOBIN 30.7 pg (28-32); MEAN CORPUSCULAR HGB CONC 32.9 g/dL (31-35); MEAN CORPUSCULAR VOLUME 93.3 fL (81-99); MONOCYTES # (AUTO) 0.7 (0.2-0.8); MONOCYTES % 6.5 % (4.4-11.3); NEUTROPHILS # (AUTO) 8.1 (2.1-6.9); NEUTROPHILS % 76.4 % (38.7-80.0); PLATELET COUNT 360 x10e3/uL (140-360); RED BLOOD COUNT 3.88 x10e6/uL (3.6-5.1); RED CELL DISTRIBUTION WIDTH 12.9 % (11.7-14.4)
[2020-06-27 13:00] LABS: ALANINE AMINOTRANSFERASE 28 IU/L (0-55); ALBUMIN 3.9 g/dL (3.5-5.0); ALBUMIN/GLOBULIN RATIO 1.2 (0.8-2.0); ALKALINE PHOSPHATASE 58 IU/L (40-150); ANION GAP 17.7 mmol/L (8-16); BLOOD UREA NITROGEN 21 mg/dL (7-26); BUN/CREATININE RATIO 20 (6-25); CALCIUM 9.2 mg/dL (8.4-10.2); CARBON DIOXIDE 25 mmol/L (22-29); CHLORIDE 101 mmol/L (98-107); CREATINE KINASE 25 IU/L (29-168); CREATININE, SERUM 1.03 mg/dL (0.57-1.11); EST GLOMERULAR FILTRATION RATE 51 ML/MIN (60-); GLUCOSE 170 mg/dL (74-118); POTASSIUM 4.7 mmol/L (3.5-5.1); SODIUM 139 mmol/L (136-145)
[2020-06-27 16:22] LABS: CREATINE KINASE 22 IU/L (29-168)
[2020-06-27] MEDS ORDERED: ASPIRIN 81 MG CHEW TAB PO ONE (17:45)
[2020-06-27] MEDS ORDERED: FUROSEMIDE INJ 10 MG/ML 4 ML VIAL IV ONE (17:45)
[2020-06-27 18:35] LABS: BILIRUBIN,URINE NEGATIVE (NEGATIVE); CLARITY,URINE SL CLOUDY (CLEAR); COLOR,URINE YELLOW (YELLOW); KETONES,URINE NEGATIVE (NEGATIVE); LEUKOCYTE ESTERASE ,URINE NEGATIVE (NEGATIVE); NITRITE,URINE NEGATIVE (NEGATIVE); PROTEIN,URINE DIPSTICK NEGATIVE (NEGATIVE); URINE UROBILINOGEN 0.2 mg/dL (0.2 - 1)
[2020-06-27 18:47] LABS: BACTERIA,URINE MODERATE /HPF
[2020-06-27 21:00] VITALS: BP 146/50
[2020-06-27] MEDS: FUROSEMIDE INJ 10 MG/ML 4 ML VIAL IV SCH (21:37)
[2020-06-27 22:11] VITALS: BP 146/50
[2020-06-27 23:38] LABS: CREATINE KINASE MB 0.8 ng/mL (0-5.0)
[2020-06-27 23:58] VITALS: BP 146/50
[2020-06-28] VITALS (7 sets, daily range): BP systolic 127–152; BP diastolic 40–73
[2020-06-28] MEDS ORDERED: TYLENOL # 31 EA PO (02:33)
[2020-06-28] MEDS ORDERED: OMEPRAZOLE40 MG PO (02:33)
[2020-06-28 06:23] LABS: BASOPHILS % 0.5 % (0.0-1.0); EOSINOPHILS # (AUTO) 0.1 (0.0-0.4); EOSINOPHILS % 0.8 % (0.0-6.0); HEMATOCRIT 33.7 % (34.2-44.1); HEMOGLOBIN 10.9 g/dL (12.0-16.0); LYMPHOCYTES # (AUTO) 1.8 (1.0-3.2); LYMPHOCYTES % 22.1 % (18.0-39.1); MEAN CORPUSCULAR HEMOGLOBIN 30.3 pg (28-32); MEAN CORPUSCULAR HGB CONC 32.3 g/dL (31-35); MEAN CORPUSCULAR VOLUME 93.6 fL (81-99); MONOCYTES # (AUTO) 0.6 (0.2-0.8); MONOCYTES % 7.1 % (4.4-11.3); NEUTROPHILS # (AUTO) 5.7 (2.1-6.9); NEUTROPHILS % 68.2 % (38.7-80.0); PLATELET COUNT 309 x10e3/uL (140-360); RED CELL DISTRIBUTION WIDTH 12.9 % (11.7-14.4)
[2020-06-28 07:05] LABS: CREATINE KINASE MB 0.7 ng/mL (0-5.0)
[2020-06-28 07:10] LABS: ALANINE AMINOTRANSFERASE 20 IU/L (0-55); ALBUMIN 3.3 g/dL (3.5-5.0); ALBUMIN/GLOBULIN RATIO 1.1 (0.8-2.0); ALKALINE PHOSPHATASE 49 IU/L (40-150); ANION GAP 13.5 mmol/L (8-16); BLOOD UREA NITROGEN 21 mg/dL (7-26); BUN/CREATININE RATIO 24 (6-25); CALCIUM 8.8 mg/dL (8.4-10.2); CARBON DIOXIDE 25 mmol/L (22-29); CHLORIDE 104 mmol/L (98-107); CREATININE, SERUM 0.87 mg/dL (0.57-1.11); EST GLOMERULAR FILTRATION RATE > 60 ML/MIN (60-); GLUCOSE 113 mg/dL (74-118); POTASSIUM 4.5 mmol/L (3.5-5.1); SODIUM 138 mmol/L (136-145)
[2020-06-28 07:25] LABS: CHOL/HDL RATIO 3.2 (3.0-3.6)
[2020-06-28] MEDS ORDERED: SODIUM CHLORIDE 0.9% 100 ML ONE (08:30)
[2020-06-28] MEDS ORDERED: IOPAMIDOL 370 MG/ML 200 ML INFUS..BTL INJ ONE (08:30)
[2020-06-28] MEDS: FUROSEMIDE INJ 10 MG/ML 4 ML VIAL IV SCH ×2 (08:54→19:57)
[2020-06-28] MEDS: ASPIRIN 81 MG CHEW TAB PO SCH (08:54)
[2020-06-28] MEDS: OLMESARTAN 20 MG TAB PO SCH (08:55)
[2020-06-28] MEDS ORDERED: ACETAMINOPHEN 325 MG TAB PO PRN (16:30)
[2020-06-29 00:10] VITALS: BP 148/62
[2020-06-29 04:00] VITALS: BP 142/62
[2020-06-29 05:11] LABS: BASOPHILS % 0.4 % (0.0-1.0); EOSINOPHILS # (AUTO) 0.1 (0.0-0.4); EOSINOPHILS % 1.2 % (0.0-6.0); HEMATOCRIT 35.7 % (34.2-44.1); HEMOGLOBIN 11.8 g/dL (12.0-16.0); LYMPHOCYTES # (AUTO) 2.4 (1.0-3.2); LYMPHOCYTES % 24.9 % (18.0-39.1); MEAN CORPUSCULAR HEMOGLOBIN 30.4 pg (28-32); MEAN CORPUSCULAR HGB CONC 33.1 g/dL (31-35); MONOCYTES # (AUTO) 0.7 (0.2-0.8); MONOCYTES % 7.4 % (4.4-11.3); NEUTROPHILS # (AUTO) 6.2 (2.1-6.9); NEUTROPHILS % 65.4 % (38.7-80.0); PLATELET COUNT 347 x10e3/uL (140-360); RED BLOOD COUNT 3.88 x10e6/uL (3.6-5.1); RED CELL DISTRIBUTION WIDTH 12.9 % (11.7-14.4)
[2020-06-29 05:32] LABS: ANION GAP 13.1 mmol/L (8-16); CALCIUM 8.8 mg/dL (8.4-10.2); CREATININE, SERUM 1.04 mg/dL (0.57-1.11); POTASSIUM 4.1 mmol/L (3.5-5.1)
[2020-06-29 08:08] VITALS: BP 143/50
[2020-06-29 08:15] VITALS: BP 143/50
[2020-06-29] MEDS: FUROSEMIDE INJ 10 MG/ML 4 ML VIAL IV SCH (08:32)
[2020-06-29] MEDS: ASPIRIN 81 MG CHEW TAB PO SCH (08:32)
[2020-06-29] MEDS: OLMESARTAN 20 MG TAB PO SCH (08:32)
[2020-06-29] MEDS ORDERED: FUROSEMIDE40 MG PO (12:08)
[2020-06-29] MEDS ORDERED: SENOKOT-S TABL1 EACH PO (12:11)
[2020-06-29] MEDS ORDERED: PANTOPRAZOLE SO40 MG PO (12:12)
[2020-06-29] MEDS ORDERED: BENICAR20 MG PO (12:13)
[2020-06-29] MEDS ORDERED: ULTRACET TABLE1 EACH PO (12:23)
[2020-06-29 13:28] VITALS: BP 135/56
== END 2020-06-29 14:30 | disposition home or self-care (01) | DRG 293 ==
LOC: ER 12:09 → ERHOLD 17:39 → MED/SURG 22:11
PROVIDERS: ADMIT Internal Medicine; ATTEND Internal Medicine
DX: I11.0 Hypertensive heart disease with heart failure (principal); I50.33 Acute on chronic diastolic (congestive) heart failure; K21.9 Gastro-esophageal reflux disease without esophagitis; R55 Syncope and collapse; M51.35 Other intervertebral disc degeneration, thoracolumbar region; Z90.49 Acquired absence of other specified parts of digestive tract; Z88.1 Allergy status to other antibiotic agents; Z88.0 Allergy status to penicillin; Z88.2 Allergy status to sulfonamides; I35.0 Nonrheumatic aortic (valve) stenosis; Z20.828 Contact with and (suspected) exposure to other viral communicable diseases
CPT/HCPCS: 36415; 70450; 71045; 71275; 80048; 80053; 80061; 81001; 82550; 82553; 83880; 84484; 85025; 87086; 93005; 93306; 93880; 99284; J1940; J7050; Q9967; U0002

== ENCOUNTER 2021-06-01 18:01 | Emergency (ER) | payer MEDICARE, OTHER ==
[~2021-06-01] VITALS: Ht 144.8 cm; Wt 61.7 kg
[~2021-06-01 18:01] MED LIST changes: +BENICAR20 MG PO; +FUROSEMIDE40 MG PO; +PANTOPRAZOLE SO40 MG PO; +SENOKOT-S TABL1 EACH PO; +TYLENOL # 31 EA PO; +ULTRACET TABLE1 EACH PO
== END 2021-06-01 22:10 | disposition home or self-care (01) ==
LOC: FSED 18:10
DX: I10 Essential (primary) hypertension (principal); D64.9 Anemia, unspecified; K21.9 Gastro-esophageal reflux disease without esophagitis; F41.9 Anxiety disorder, unspecified; R94.31 Abnormal electrocardiogram [ECG] [EKG]
CPT/HCPCS: 70450; 71046; 81003; 93005; 99284